=== PATIENT | female | born 1985 | race Asian ===

== ENCOUNTER 2017-06-18 15:28 | Emergency (ER) | payer OTHER ==
[~2017-06-18] VITALS: Ht 165.1 cm; Wt 84.5 kg
[~2017-06-18 15:28] MED LIST: AMOX1TAB10 PO; BACITUD TOP; FERR-49; HYDR-906 PO; IBUP800T25 PO; PREN1TAB49
[2017-06-18 15:31] VITALS: Ht 165.1 cm; Wt 84.5 kg
[2017-06-18] MEDS ORDERED: KETOROLAC 15 MG INJ IM STA (16:51)
--- NOTE | 2017-06-18 16:51 | ERD ---
ER Documentation Chief Complaint Date/Time DATE: 06/18/17 TIME: 16:50 Chief Complaint RIGHT LOWER BACK PAIN RADIATING DOWN RT LEG X 3 DAYS HPI This 32-year-old female presents to emergency department with complaint of right sided back pain x 2 days, pain is radiating down leg. Patient reports she was doing a light of working a day the pain started. Denies alteration in bowel or bladder, dysuria, difficulty ambulating. Pain is described as "bad". She has tried [id number] Motrin with little relief of symptoms. Denies dysuria, hematuria, or abdominal pain. ROS All systems reviewed and are negative except as per history of present illness. Medications Home Meds Active Scripts Diazepam* (Valium*) 5 Mg Tablet, 5 MG PO Q8 for MUSCLE SPASMS, #10 TAB Prov:ALEXIS,ZACH 06/18/17 Naproxen* (Naprosyn*) 500 Mg Tablet, 500 MG PO BID Y for PAIN AND/OR INFLAMMATION, #20 TAB Prov:ALEXIS,ZACH 06/18/17 Hydrocodone/Acetaminophen ([place] 5-325 Tablet) 1 Each Tablet, 1 TAB PO Q6H Y for PAIN, #7 TAB Prov:ELOY HORTON PA-C 10/01/16 Amoxicillin/Potassium Clav (Amox-Clav 875-125 mg Tablet) 875-125 mg Tab, 1 TAB PO BID for 7 Days, #14 TAB Prov:ELOY HORTON PA-C 10/01/16 Ibuprofen* (Ibuprofen*) 800 Mg Tablet, 800 MG PO Q8, #30 TAB take with food Prov:ANTONIO VENEGAS PA-C 07/10/16 Bacitracin* (Bacitracin Oint (UD)*) 1 Applic Oint, 1 APPLIC TOP ONCE, #12 PKT APPLY TO Prov:ANTONIO VENEGAS PA-C 07/10/16 Reported Medications Ferrous Sulfate* (Feosol*) 1 Tab Tablet 02/09/10 Vits W-Ca,Fe,Fa(<1MG) () 1 Tab Tablet 02/09/10 Vits W-Ca,Fe,Fa(<1MG) () 1 Tab Tablet 01/21/10 Allergies Allergies: Coded Allergies: No Known Allergies (Verified Allergy, Mild, 01/21/10) PMhx/Soc Medical and Surgical Hx: pt denies Medical Hx, pt denies Surgical Hx History of Surgery: No Hx Neurological Disorder: No Hx Respiratory Disorders: No Hx Cardiac Disorders: No Hx Miscellaneous Medical Probl: No Hx Alcohol Use: No Hx Substance Use: No Hx Tobacco Use: No Smoking Status: Never smoker Physical Exam Vitals Vital Signs Date Time Temp Pulse Resp B/P Pulse Ox O2 Delivery O2 Flow Rate FiO2 06/18/17 15:31 98.3 88 18 102/59 100 Vitals stable, triage notes reviewed Physical Exam Const: Well-nourished well-hydrated well-appearing in no acute distress Head: Eyes: Normal Conjunctiva, PERRLA, EOMI ENT: Neck: Resp: Clear to auscultation bilaterally no rales wheezes or rhonchi Cardio: Regular rate and rhythm, no murmurs Abd: Soft, obese, non tender, non distended. Skin: Back Exam: Skin: No bruising or rash Compartments: Soft Motor: Straight leg rises positive at 50 on right pain with abduction, no pain with abduction. Sensation: Intact to light touch throughout Bones: No midline TTP Ext: No cyanosis, or edema Neur: Awake and alert Psych: Normal Mood and Affect Results 24 hrs Laboratory Tests Test 06/18/17 17:29 Bedside Urine pH (LAB) 7.0 Bedside Urine Protein (LAB) Trace Bedside Urine Glucose (UA) Negative Bedside Urine Ketones (LAB) Negative Bedside Urine Blood Negative Bedside Urine Nitrite (LAB) Negative Bedside Urine Leukocyte Esterase (L Negative Current Medications Medications (Trade) Dose Ordered Sig/Mely Route PRN Reason Start Time Stop Time Status Last Admin Dose Admin Diazepam (Valium) 5 mg ONCE ONCE PO 06/18/17 17:00 06/18/17 17:01 DC 06/18/17 17:14 Ketorolac Tromethamine (Toradol) 15 mg ONCE STAT IM 06/18/17 16:51 06/18/17 16:53 DC 06/18/17 17:14 Urinalysis negative for evidence of leukocytosis, nitrates, or microscopic hematuria. Procedures/MDM This 32-year-old female presents to emergency department with 2 day history of back pain after doing heavy work. Pain has progressively worsened with the treatment of Motrin, patient reports pain is radiating down her right leg. She is able to ambulate, has pain with raising from supine position or raising from a seated position. I have little suspicion for cauda equina syndrome, pyelonephritis, or vertebral fracture. Patient's history and physical exam supports a lumbar strain with sciatica. Patient treatment today includes Toradol 15 mg intramuscularly, 5 mg Valium p.o and a urinalysis to rule out any evidence of urinary tract infection. Urinalysis negative for leukocytosis and nitrates no evidence of infection. Plan to discharge patient home with Naprosyn 500 mg 1 tab p.o. twice daily 10 days. Valium 1 tab p.o. every 8 hours as needed myopathy count of 10. Continued activity, no heavy lifting, ambulate, stretch, follow-up with primary care physician if symptoms fail to improve as anticipated for referral to physical therapy. Patient is stable with no new complaints during ER course, clinically there is no current evidence to suggest sepsis, acute abdomen, acute coronary syndromes, pulmonary embolism or any other emergent condition appearing to require further evaluation or hospitalization. I feel the patient is stable for discharge at this time. I have discussed results, examination findings, the treatment plan with the patient and family present prior to discharge. Indications for emergent reevaluation, side effects of medication were also discussed. All questions were answered. Patient verbalizes understanding and agrees with plan of care. Departure Diagnosis: Primary Impression: Lumbar back pain Chronicity: acute Back pain laterality: right Sciatica presence: with sciatica Sciatica laterality: sciatica of right side Qualified Code: M54.41 - Acute right-sided low back pain with right-sided sciatica Condition: Good Patient Instructions: Causes of Lumbar (Low Back) Pain Referrals: [facility] Additional Instructions: Thank you for for coming to [facility] for your care today. Please ask your nurse or provider if you have questions about your care today and do not leave until all your questions have been answered. Please use any medications given as directed and follow-up with your doctor (or the doctor you were referred to) in the next 2-3 days. If you do not have a primary care doctor you may follow up at the [facility] (listed below). You may also use motrin and tylenol as needed for fever and/or pain unless instructed otherwise by your provider or nurse. Indications for more urgent follow-up have been discussed, but you may return to the Emergency Department at ANY time for any worrisome or worsening symptoms. If you have abdominal pain, please know that no test or exam you received is perfect and you should follow up within 8 hours for continued pain. If you had any imaging studies today, such as an X-Ray or CT Scan, these studies will be reviewed later by a radiologist. You will be called if there are important findings that were not identified today, so make sure the contact information you provided at registration is correct. If you received any narcotic pain control medicine today, such as Vicodin, Morphine or Dilaudid, your coordination and judgment may be affected for a number of hours. Please do not drive or operate heavy machinery, and you may want someone to assist you at home. If you were given a prescription for narcotic medication, be aware that it is very addictive- use sparingly and only if necessary. ZACH ESPINOZA Jun 18, 2017 16:51
[2017-06-18] MEDS ORDERED: DIAZEPAM 5 MG TAB PO ONE (17:00)
[2017-06-18] MEDS ORDERED: NAPR-260 PO (17:18)
[2017-06-18] MEDS ORDERED: DIAZ-90 PO (17:19)
[2017-06-18 17:22] LABS: URINE BLOOD (Dip) POC Negative (NEGATIVE)
== END 2017-06-18 17:50 | disposition home or self-care (01) ==
LOC: FTE 15:28
DX: M54.41 Lumbago with sciatica, right side (principal)
CPT/HCPCS: 81003; 96372; J1885; Z7502; Z7610

== ENCOUNTER 2018-08-17 10:50 | Emergency (ER) | END 2018-08-17 14:15 | disposition home or self-care (01) ==

== ENCOUNTER 2018-10-30 09:22 | Emergency (ER) | payer OTHER ==
[~2018-10-30] VITALS: Ht 154.9 cm; Wt 88.0 kg
[~2018-10-30 09:22] MED LIST changes: +DIAZ5TAB PO; +HYDR-4011 PO; -HYDR-906 PO; +IBUP-1542 PO; +IBUP-1544 PO; -IBUP800T25 PO; +NAPR-985 PO
[2018-10-30 09:32] VITALS: Ht 154.9 cm; Wt 88.0 kg
[2018-10-30] MEDS ORDERED: FER325 PO (10:04)
--- NOTE | 2018-10-30 10:26 | ERD ---
ER Documentation Chief Complaint Chief Complaint headahce ,dizzy and eye burning - hx of diabetes HPI 33-year-old female presents the emergency department complaining of her blood sugar being high. Patient had gestational diabetes and has been followed with hyperglycemia for the last 3 months. She has never required medications. She states that she has been checking her blood sugar and it is been over 120 over the last few days. She has nonspecific symptoms including a nonspecific headache, nonspecific dizziness nonspecific eye burning. Patient reports no fevers or chills or any other acute symptoms at this time. Reports no polyuria or polydipsia. ROS All systems reviewed and are negative except as per history of present illness. Medications Home Meds Reported Medications Ferrous Sulfate* (Ferrous Sulfate*) 325 Mg Tabec, 325 MG PO DAILY, TAB 10/30/18 Discontinued Reported Medications Ferrous Sulfate* (Feosol*) 1 Tab Tablet 02/09/10 Vits W-Ca,Fe,Fa(<1MG) () 1 Tab Tablet 02/09/10 Vits W-Ca,Fe,Fa(<1MG) () 1 Tab Tablet 01/21/10 Discontinued Scripts Hydrocodone/Acetaminophen ([place] 5-325 Tablet) 1 Each Tablet, 1 TAB PO Q6H PRN for SEVERE PAIN LEVEL 7-10, #7 TAB Prov:JEANNE WARNER MD 08/17/18 Ibuprofen* (Motrin*) 600 Mg Tab, 600 MG PO Q8 PRN for PAIN LEVEL 1-5 for 5 Days, #15 TAB Prov:JEANNE WARNER MD 08/17/18 Diazepam* (Valium*) 5 Mg Tablet, 5 MG PO Q8 for MUSCLE SPASMS, #10 TAB Prov:ALEXIS,ZACH 06/18/17 Naproxen* (Naprosyn*) 500 Mg Tablet, 500 MG PO BID PRN for PAIN AND/OR INFLAMMATION, #20 TAB Prov:ALEXIS,ZACH 06/18/17 Hydrocodone/Acetaminophen ([place] 5-325 Tablet) 1 Each Tablet, 1 TAB PO Q6H PRN for PAIN, #7 TAB Prov:ELOY HORTON PA-C 10/01/16 Amoxicillin/Potassium Clav (Amox-Clav 875-125 mg Tablet) 875-125 mg Tab, 1 TAB PO BID for 7 Days, #14 TAB Prov:ELOY HORTON JACEY 10/01/16 Ibuprofen* (Ibuprofen*) 800 Mg Tablet, 800 MG PO Q8, #30 TAB take with food Prov:ANTONIO VENEGAS JACEY 07/10/16 Bacitracin* (Bacitracin Oint (UD)*) 1 Applic Oint, 1 APPLIC TOP ONCE, #12 PKT APPLY TO Prov:ANTONIO VENEGAS JACEY 07/10/16 Allergies Allergies: Coded Allergies: No Known Allergies (Verified Allergy, Mild, 08/17/18) PMhx/Soc History of Surgery: No Hx Neurological Disorder: No Hx Respiratory Disorders: No Hx Cardiac Disorders: No Hx Miscellaneous Medical Probl: No Hx Alcohol Use: No Hx Substance Use: No Hx Tobacco Use: No Smoking Status: Never smoker FmHx Noncontributory for chief complaint Physical Exam Vitals Vital Signs Date Temp Pulse Resp B/P (MAP) Pulse Ox O2 O2 Flow FiO2 Time Delivery Rate 10/30/18 98.5 96 24 122/74 98 09:32 (90) Physical Exam GENERAL: The patient is well developed and appropriate for usual state of health in no apparent distress HEENT: Pupils equal, round, and reactive to light. EOMI. There is no scleral icterus. NECK: C-spine is soft and supple, there is no meningismus. There is no cervical lymphadenopathy. LUNGS: Clear to auscultation bilaterally. There are no rales, wheezes or rhonchi. HEART: Regular rate and rhythm, no murmurs, clicks, rubs or gallops. ABDOMEN: Soft, non-tender, non-distended. There are bowel sounds in all four quadrants. No rebound or guarding. EXTREMITIES: There is no peripheral cyanosis or edema. No focal swelling or erythema. NEURO: The patient moves all four extremities with 5/5 strength. Cranial nerves II - XII are intact. Normal gait. Alert and oriented SKIN: There is no apparent rash or petechiae. HEME/LYMPHATIC: There is no evidence of excessive bruising or lymphedema. PSYCHIATRIC: The patient does not appear anxious or depressed. Results 24 hrs Laboratory Tests Test 10/30/18 09:53 10/30/18 09:58 10/30/18 10:02 Bedside Urine pH (LAB) 6.5 Bedside Urine Protein (LAB) Trace Bedside Urine Glucose (UA) Negative Bedside Urine Ketones (LAB) Negative Bedside Urine Blood Negative Bedside Urine Nitrite (LAB) Negative Bedside Urine Leukocyte Esterase (L Negative POC Beta HCG, Qualitative NEGATIVE Bedside Glucose 134 mg/dL Procedures/MDM Patient was taken to a room, seen and examined Medical decision makin-year-old female presents the emergency department complaining of her blood sugar being high. At this time, although her blood sugar is mildly elevated, it is only minimally elevated and certainly not even requiring medications at this time. She shows no evidence of urinary tract infection, or other high-risk issues and seems to be appropriate for outpatient supportive care with referral back to her doctor for follow-up of her diabetes. Departure Diagnosis: Primary Impression: Diabetes Condition: Stable Patient Instructions: Diabetic Diet Additional Instructions: Please see your doctor to recheck your blood sugar this week. HEIDY FORTUNE Oct 30, 2018 10:26
[2018-10-30 10:32] VITALS: BP 128/67; PULSE 68; RESP 20
== END 2018-10-30 10:33 | disposition home or self-care (01) ==
LOC: E/R 09:22
DX: E11.65 Type 2 diabetes mellitus with hyperglycemia (principal)
CPT/HCPCS: 81003; 81025; 82962; Z7502; 99282

== ENCOUNTER 2019-02-24 12:07 | Emergency (ER) | payer OTHER ==
[~2019-02-24] VITALS: Ht 160 cm; Wt 88.4 kg
[~2019-02-24 12:07] MED LIST changes: -AMOX1TAB10 PO; -BACITUD TOP; -DIAZ5TAB PO; +FER325 PO; -FERR-49; -HYDR-4011 PO; -IBUP-1542 PO; -IBUP-1544 PO; -NAPR-985 PO; -PREN1TAB49
[2019-02-24 12:19] VITALS: BP 116/81; PULSE 80; RESP 18; Ht 160 cm; Wt 88.4 kg
[2019-02-24] MEDS ORDERED: CIPR500T4 PO (15:43)
--- NOTE | 2019-02-24 15:48 | ERD ---
ER Documentation Chief Complaint Chief Complaint dysuria x 6 days HPI 34-year-old female presenting with dysuria x6 days. Patient denies any hematuria denies back pain. Denies fevers. Has not taken medications for symptoms. No history of diabetes. NKDA. Surgical history denies. Social history denies ROS All systems reviewed and are negative except as per history of present illness. Medications Home Meds Active Scripts Ciprofloxacin Hcl* (Ciprofloxacin Hcl*) 500 Mg Tablet, 500 MG PO BID for 7 Days, TAB Prov:ELOY HORTON PA-C 02/24/19 Reported Medications Ferrous Sulfate* (Ferrous Sulfate*) 325 Mg Tabec, 325 MG PO DAILY, TAB 10/30/18 Allergies Allergies: Coded Allergies: No Known Allergies (Verified Allergy, Mild, 08/17/18) PMhx/Soc History of Surgery: No Hx Neurological Disorder: No Hx Respiratory Disorders: No Hx Cardiac Disorders: No Hx Psychiatric Problems: No Hx Miscellaneous Medical Probl: No Hx Alcohol Use: No Hx Substance Use: No Hx Tobacco Use: No Smoking Status: Never smoker FmHx Family History: No diabetes, No coronary disease, No other Physical Exam Vitals Vital Signs Date Temp Pulse Resp B/P (MAP) Pulse Ox O2 O2 Flow FiO2 Time Delivery Rate 02/24/19 98.6 80 18 116/81 98 12:19 (93) Physical Exam GENERAL: The patient is well-appearing, well-nourished, in no acute distress HEENT: Atraumatic. Conjunctivae are pink. Pupils equal, round, and reactive to light. There is no scleral icterus. Tympanic membranes clear bilaterally. Oropharynx clear. NECK: C-spine is soft and supple. There is no meningismus. There is no cervical lymphadenopathy. CHEST: Clear to auscultation bilaterally. There are no rales, wheezes or rhonchi. HEART: Regular rate and rhythm. No murmurs, clicks, rubs or gallops. ABDOMEN:Soft, nontender and nondistended. Good bowel sounds. No rebound or guarding. No gross peritonitis. No gross organomegaly or masses. Results 24 hrs Laboratory Tests Test 02/24/19 15:28 02/24/19 15:29 Bedside Urine pH (LAB) 5.5 Bedside Urine Protein (LAB) Negative Bedside Urine Glucose (UA) Negative Bedside Urine Ketones (LAB) Negative Bedside Urine Blood Trace-intact Bedside Urine Nitrite (LAB) Negative Bedside Urine Leukocyte Esterase (L 2+ POC Beta HCG, Qualitative NEGATIVE Procedures/MDM MDM: 34-year-old female presenting with dysuria. I have low suspicion for pyelonephritis. I have low suspicion for acute abdominal emergency. Patient has findings consistent with urinary tract infection on urinalysis and I will treat with antibiotics. She is told symptoms change or worsen to return immediately to the ER. All questions answered at discharge Departure Diagnosis: Primary Impression: UTI (urinary tract infection) Additional Impression: Dysuria Condition: Stable Patient Instructions: Understanding Urinary Tract Infections (UTIs) Referrals: [facility] YOU HAVE RECEIVED A MEDICAL SCREENING EXAM AND THE RESULTS INDICATE THAT YOU DO NOT HAVE A CONDITION THAT REQUIRES URGENT TREATMENT IN THE EMERGENCY DEPARTMENT. FURTHER EVALUATION AND TREATMENT OF YOUR CONDITION CAN WAIT UNTIL YOU ARE SEEN IN YOUR DOCTORS OFFICE WITHIN THE NEXT 1-2 DAYS. IT IS YOUR RESPONSIBILITY TO MAKE AN APPOINTMENT FOR FOLOW-UP CARE. IF YOU HAVE A PRIMARY DOCTOR --you should call your primary doctor and schedule an appointment IF YOU DO NOT HAVE A PRIMARY DOCTOR YOU CAN CALL OUR PHYSICIAN REFERRAL HOTLINE AT IF YOU CAN NOT AFFORD TO SEE A PHYSICIAN YOU CAN CHOSE FROM THE FOLLOWING [facility] [address] [facility] [address] [facility]. [facility] [address] [facility] [facility] [address] [facility]. [facility] [phone] [id number] [facility]. [facility]. [address] Additional Instructions: FOLLOW UP WITH YOUR PRIMARY CARE PHYSICIAN TOMORROW.Return to this facility if you are not improving as expected. ELOY HORTON PA-C February 24, 2019 15:48
== END 2019-02-24 16:18 | disposition home or self-care (01) ==
LOC: FTE 12:07
DX: N39.0 Urinary tract infection, site not specified (principal)
CPT/HCPCS: 81003; 81025; Z7502; 99283